=== PATIENT | male | born 1960 | race Caucasian/White ===

== ENCOUNTER → 2019-07-31 14:19 | Outpatient (BNVA) | payer MEDICAID, SELFPAY | PROVIDERS: PCP Family Medicine; Visit Provider Family Medicine | DX: I10 Essential (primary) hypertension (principal) | CPT/HCPCS: 80048 ==

== ENCOUNTER → 2020-07-30 14:59 | Outpatient (BNVA) | payer MEDICAID, SELFPAY | PROVIDERS: PCP Family Medicine; Visit Provider Family Medicine | DX: I10 Essential (primary) hypertension (principal); Z00.00 Encounter for general adult medical examination without abnormal findings | CPT/HCPCS: 80053; 85025 ==

== ENCOUNTER → 2021-08-20 11:19 | Outpatient (BNVA) | payer MEDICAID, SELFPAY | PROVIDERS: PCP Family Medicine; Visit Provider Family Medicine | DX: I10 Essential (primary) hypertension (principal) | CPT/HCPCS: 80053 ==

== ENCOUNTER 2022-05-17 19:56 | Emergency (ER) | payer MEDICAID, SELFPAY ==
[2022-05-17 20:11] VITALS: BP 165/89; PULSE 105; RESP 18; TEMP 37.1; O2SAT 97; BMI 30.4
--- NOTE | 2022-05-17 20:45 | XRR_ITS ---
PROCEDURE INFORMATION: Exam: XR Chest Exam date and time: 05/17/2022 9:29 PM Age: 61 years old Clinical indication: Cough and shortness of breath; Additional info: SOB TECHNIQUE: Imaging protocol: Radiologic exam of the chest. Views: 1 view. COMPARISON: No relevant prior studies available. FINDINGS: Lungs: Unremarkable. No consolidation. Small granuloma lateral right mid lung zone. Pleural spaces: Unremarkable. No pleural effusion. No pneumothorax. Heart/Mediastinum: Unremarkable. No cardiomegaly. Bones/joints: Unremarkable. XR/XR chest 1V portable [id number] IMPRESSION: No acute findings.
[2022-05-17 21:22] VITALS: BP 162/106; PULSE 72; RESP 16; O2SAT 97
[2022-05-17 21:36] LABS: Influenza A by IFA negative (Negative); Influenza B by IFA negative (Negative); SARS Covid-2 Antigen negative (Negative)
--- NOTE | 2022-05-17 21:36 | ED_ITS ---
HPI - General Adult General: Chief complaint: General Medical Stated complaint: flu like symptoms Time Seen by Provider: 05/17/22 21:26 History of Present Illness: 61-year-old male presents with mild cough, congestion bilateral ear pain little bit of stomach discomfort. He thinks that he has just a viral flu bug. Been going on for couple days. He reports [id number] medications been helping. He reports he can get some chills and then hot. No vomiting, no diarrhea. Associated symptoms: Reports malaise; Deny chest pain, dyspnea, headache(s), nausea, rash, palpitations or vomiting Review of Systems Const: Reports: chills, body aches and malaise; Denies: fever(s) Eyes: Denies: change in vision or eye discomfort ENMT: Reports: ear or mastoid pain and nasal congestion; Denies: throat pain Card: Denies: chest pain, palpitations or irregular heart rhythm Resp: Reports: non-productive cough; Denies: dyspnea or wheezing GI: Reports: diarrhea and other; Denies: nausea or vomiting Musc: Denies: neck pain or back pain Skin/Breast: Denies: rash or erythema Neuro: Denies: headache(s) or dizziness Psych: Denies: anxiety or depression PFS ED PFSH: Medical History (Updated 05/17/22 @ 21:59 by Drew Lui DO) Hypertension Social History Smoking and tobacco status: current every day smoker Alcohol intake: current Alcohol intake frequency: holidays/special occasions only Physical Exam Const: COMMON NORMALS: patient oriented x3 GENERAL APPEARANCE: cooperative; not ill appearing HENMT: COMMON NORMALS: TM's normal bilaterally HEAD & SCALP: normal to inspection GENERAL EAR: hearing grossly impaired TYMPANIC MEMBRANE: TM's normal bilaterally Eye: COMMON NORMALS: EOMs intact bilaterally and conjunctivae normal CONJUNCTIVA: Yes conjunctivae normal Resp: COMMON NORMALS: normal respiratory effort, No use of accessory muscles and clear to auscultation bilaterally AUSCULTATION: clear to auscultation bilaterally Cardio: COMMON NORMALS: regular rate and regular rhythm RATE: regular rate RHYTHM: regular rhythm GI: COMMON NORMALS: Soft to palpation PALPATION: Yes Soft to palpation and Yes Tenderness to palpation present (GI) (mild epigastric, periumbilical ) Extremity: COMMON NORMALS: full ROM and capillary refill normal Neuro: COMMON NORMALS: patient oriented x3, no focal motor deficits and no sensory deficits noted Psych: COMMON NORMALS: mental status grossly normal, Normal thought process present, cooperative and speech normal SPEECH: Yes normal speech MOOD & AFFECT: Yes euthymic mood THOUGHT PROCESS: Normal thought process present Skin: COMMON NORMALS: no rashes or lesions noted and turgor normal GENERAL SKIN EXAM: no rashes or lesions noted and turgor normal Course Vital Signs: Vital signs: Vital Signs Temperature 98.8 F 05/17/22 20:11 Pulse Rate 72 05/17/22 21:22 Respiratory Rate 16 05/17/22 21:22 Blood Pressure 162/106 05/17/22 21:22 Pulse Oximetry 97 05/17/22 21:22 Oxygen Delivery Me thod 05/17/22 21:22 MDM - General Adult Medical Decision Making Patient is negative for influenza and COVID. Patient has normal physical exam outside of mildly tender belly but no rebound or concerning findings. Discussed further evaluation with labs and abdominal imaging however patient would prefer to be discharged home and will return as needed. He thinks he just has a little bit of a viral stomach bug and is ready to be discharged. Patient was stable upon discharge Lab Data Radiology Impressions Chest X-Ray 05/17/22 20:45 IMPRESSION: No acute findings. Laboratory Results Influenza Type A Ag negative (Negative) 05/17/22 21:09 Influenza Type B Ag negative (Negative) 05/17/22 21:09 SARS-CoV-2 Ag (Rapid) negative (Negative) 05/17/22 21:09 Discharge Plan Discharge Patient Disposition: Home Clinical Impression: Flu-like symptoms, Acute pain of both ears Condition: Stable Prescriptions: No Action multivitamin Capsule 1 cap PO DAILY fluticasone propion-salmeterol [Advair Diskus] 100-50 mcg/dose blister with device See Rx Instructions .ROUTE .COMPLEX Qty: 60 7RF Dose Instruction: INHALE 1 PUFF BY MOUTH TWICE DAILY Rx Instructions: INHALE 1 PUFF BY MOUTH TWICE DAILY losartan-hydrochlorothiazide 100-12.5 mg tablet 1 tab PO DAILY 90 Days Qty: 90 0RF albuterol sulfate [Ventolin HFA] 90 mcg/actuation HFA aerosol inhaler See Rx Instructions .ROUTE .COMPLEX Qty: 18 4RF Dose Instruction: INHALE 2 PUFFS SIX TIMES PER DAY NEEDED FOR SHORTNESS OF BREATH OR WHEEZING Rx Instructions: INHALE 2 PUFFS SIX TIMES PER DAY NEEDED FOR SHORTNESS OF BREATH OR WHEEZING Discharge Orders: Discharge ED (Routine); Ordered 05/17/22 Ordered By: Drew Lui Referrals: Melly Claudio MD [Primary Care Provider] - Discharge Diet: Usual diet Discharge Activity: Resume usual activity Patient Instructions: Ear Pain - Adult, Opioid Safety, Pain Management, Viral Syndrome - Adult Activity Restrictions/Additional Instructions: Follow-up with your primary care provider if you are not improving over the next week. Drink plenty of fluids. You may try Flonase or Nasacort nasal spray as directed on package with gentle popping of the ears 2-3 times daily for the next week to help with your ear pain Coding Level of Care Code ED [employer] Exam Comprehensive
[2022-05-17 22:32] VITALS: BP 147/106; PULSE 96; RESP 14; O2SAT 96
== END 2022-05-17 22:33 | disposition home or self-care (01) ==
PROVIDERS: Registered Nurse; Emergency Provider Student in an Organized Health Care Education/Training Program; PCP Family Medicine
DX: R05.9 Cough, unspecified (principal); H92.03 Otalgia, bilateral; R10.9 Unspecified abdominal pain; Z20.822 Contact with and (suspected) exposure to COVID-19; I10 Essential (primary) hypertension; F17.210 Nicotine dependence, cigarettes, uncomplicated
CPT/HCPCS: 71045; 87426; 87804; 99283

== ENCOUNTER 2022-05-20 03:13 | Emergency (ER) | payer MEDICAID, SELFPAY ==
[2022-05-20 03:18] VITALS: BP 162/93; PULSE 74; RESP 16; TEMP 36.4; O2SAT 97
--- NOTE | 2022-05-20 03:29 | W.ED.GENADLT ---
HPI - General Adult General: Chief complaint: General Medical Stated complaint: Feet Hurt and Are cold and he can see his breath Time Seen by Provider: 05/20/22 03:16 Source: patient Mode of arrival: ambulatory Limitations: no limitations History of Present Illness: 61-year-old male states that when it was very cold last week that his feet got cold because any did not have a heater he states that as it is warmed up he started to have some pain in his feet he has no necrosis no signs of frostbite. He states he got a sharp pain in bilateral feet he states he still feel cold he denies any fever denies any injuries denies any worsening proving factors. Associated symptoms: Deny chest pain, dyspnea, headache(s), nausea, rash or vomiting Review of Systems Const: Denies: fever(s), chills, body aches or change in appetite Eyes: Denies: blurry vision or eye discomfort ENMT: Denies: throat pain or dental pain Card: Denies: chest pain Resp: Denies: dyspnea GI: Denies: abdominal pain, nausea, vomiting or diarrhea : Denies: dysuria Musc: Reports: extremity pain Skin/Breast: Denies: rash Neuro: Denies: headache(s) Psych: Denies: depression Curtis/Lymph: Denies: easy bruising All/Imm: Denies: urticaria PFSH ED PFSH: Medical History Hypertension Social History Smoking and tobacco status: current every day smoker Alcohol intake: current Alcohol intake frequency: holidays/special occasions only Physical Exam Const: COMMON NORMALS: no acute distress and patient oriented x3 HENMT: COMMON NORMALS: normocephalic and atraumatic HEAD & SCALP: normocephalic and atraumatic Eye: COMMON NORMALS: conjunctivae normal CONJUNCTIVA: Yes conjunctivae normal Neck/C-Spine: COMMON NORMALS: supple Chest: COMMONS NORMALS: normal inspection of the chest Resp: COMMON NORMALS: normal respiratory effort Cardio: COMMON NORMALS: regular rate RATE: regular rate GI: INSPECTION: Yes normal to inspection Extremity: NARRATIVE EXTREMITY EXAM: No tenderness to the bilateral feet no erythema distal pulses intact Neuro: COMMON NORMALS: patient oriented x3 Psych: COMMON NORMALS: mental status grossly normal Skin: COMMON NORMALS: no rashes or lesions noted GENERAL SKIN EXAM: no rashes or lesions noted Course Vital Signs: Vital signs: Vital Signs Temperature 97.6 F 05/20/22 03:18 Pulse Rate 74 05/20/22 03:18 Respiratory Rate 16 05/20/22 03:18 Blood Pressure 162/93 05/20/22 03:18 Pulse Oximetry 97 05/20/22 03:18 Oxygen Delivery Me thod 05/20/22 03:18 MDM - General Adult Medical Decision Making Patient presents with bilateral foot pain he has no signs of inflammation or cellulitis pulses are normal no signs of DVT or ischemic limb we will place him on anti-inflammatories he is stable for discharge. Discharge Plan Discharge Patient Disposition: Home Clinical Impression: Bilateral foot pain Condition: Stable Prescriptions: New Naprosyn 500 mg tablet 500 mg PO BID PRN (Reason: pain) Qty: 20 0RF No Action multivitamin Capsule 1 cap PO DAILY fluticasone propion-salmeterol [Advair Diskus] 100-50 mcg/dose blister with device See Rx Instructions .ROUTE .COMPLEX Qty: 60 7RF Dose Instruction: INHALE 1 PUFF BY MOUTH TWICE DAILY Rx Instructions: INHALE 1 PUFF BY MOUTH TWICE DAILY losartan-hydrochlorothiazide 100-12.5 mg tablet 1 tab PO DAILY 90 Days Qty: 90 0RF albuterol sulfate [Ventolin HFA] 90 mcg/actuation HFA aerosol inhaler See Rx Instructions .ROUTE .COMPLEX Qty: 18 4RF Dose Instruction: INHALE 2 PUFFS SIX TIMES PER DAY NEEDED FOR SHORTNESS OF BREATH OR WHEEZING Rx Instructions: INHALE 2 PUFFS SIX TIMES PER DAY NEEDED FOR SHORTNESS OF BREATH OR WHEEZING Discharge Orders: Discharge ED (Routine); Ordered 05/20/22 Ordered By: Garry Myers Referrals: Melly Claudio MD [Primary Care Provider] - 1-3 days Discharge Diet: Advance as tolerated Discharge Activity: Resume usual activity Patient Instructions: Arthralgia (ED) Coding Level of Care Code ED [employer] for [employer]
[2022-05-20] MEDS: naproxen 500 mg Tablet PO (03:37)
== END 2022-05-20 03:38 | disposition home or self-care (01) ==
PROVIDERS: Emergency Provider Emergency Medicine; PCP Family Medicine
DX: M79.672 Pain in left foot (principal); M79.671 Pain in right foot; I10 Essential (primary) hypertension; F17.210 Nicotine dependence, cigarettes, uncomplicated
CPT/HCPCS: 99283

== ENCOUNTER → 2025-04-30 14:19 | Outpatient (BNVA) | payer MEDICAID, SELFPAY | PROVIDERS: PCP Family Medicine; Visit Provider Family Medicine | DX: I10 Essential (primary) hypertension (principal) | CPT/HCPCS: 80053; 85025 ==